=== PATIENT | female | born 1950 | race Native Hawaiian/Other Pacific Islander ===

== ENCOUNTER 2017-02-07 08:43 | Outpatient (CLI) | payer OTHER ==
[~2017-02-07 08:43] MED LIST: ALLERGY25 M1 PO; AMBIEN5 MG PO; AMITRIPTYLIN50 MG PO; ASA LOW STR81 MG PO; CIPRO500 MG PO; EZET10TA13 OR; GABA100C2 PO; GILOTRIF30 MG PO; KLOR-CON M2020 MEQ OR; LEVO0.0723 PO; LORTAB 10-325 M1 TAB PO; LORTAB1 TAB PO; NEXIUM40 M1 PO; NIFEDIAC CC90 MG OR; PAROXETINE10 MG OR; SIMV40TA57; STOOL SOFTENER240 MG PO; TIROSINT50 MCG OR; TOPROL XL200 MG PO; TRAM50TA PO
[2017-02-07 09:11] LABS: PLATELET COUNT 247 K/uL (152-353)
== END 2017-02-07 19:26 | disposition home or self-care (01) ==
LOC: LABW 08:43
PROVIDERS: Internal Medicine
DX: I10 Essential (primary) hypertension (principal)
CPT/HCPCS: 36415; 80053; 80061; 81000; 84439; 84443; 85027

== ENCOUNTER 2017-03-19 11:56 | Outpatient (CLI) | payer OTHER ==
[2017-03-19 12:15] LABS: PLATELET COUNT 199 K/uL (152-353)
== END 2017-03-19 19:16 | disposition home or self-care (01) ==
LOC: LABW 11:56
PROVIDERS: Internal Medicine
DX: D64.89 Other specified anemias (principal); E03.8 Other specified hypothyroidism
CPT/HCPCS: 36415; 80069; 84439; 84443; 85027

== ENCOUNTER 2017-08-18 07:56 | Outpatient (CLI) | payer OTHER ==
[2017-08-18 08:47] LABS: PLATELET COUNT 184 K/uL (152-353)
[2017-08-18 09:14] LABS: POTASSIUM 4.4 mmol/L (3.6-5.2)
== END 2017-08-18 10:00 | disposition home or self-care (01) ==
LOC: LABW 07:56 → US 09:00 → LABW 10:00
PROVIDERS: Internal Medicine
DX: I10 Essential (primary) hypertension (principal); M54.89 Other dorsalgia; Q61.01 Congenital single renal cyst
CPT/HCPCS: 36415; 80053; 80061; 81000; 82043; 82570; 84439; 84443; 85027

== ENCOUNTER 2017-12-05 09:19 | Outpatient (CLI) | payer OTHER ==
[2017-12-05 10:18] LABS: PLATELET COUNT 204 K/uL (152-353)
== END 2017-12-05 20:23 | disposition home or self-care (01) ==
LOC: LABW 09:19
PROVIDERS: Internal Medicine Nephrology
DX: N18.4 Chronic kidney disease, stage 4 (severe) (principal)
CPT/HCPCS: 36415; 82570; 82728; 83540; 83550; 83970; 84155; 84550; 85027

== ENCOUNTER 2018-02-10 09:09 | Outpatient (CLI) | payer OTHER ==
[2018-02-10 10:35] LABS: PLATELET COUNT 186 K/uL (152-353)
[2018-02-10 10:58] LABS: POTASSIUM 4.5 mmol/L (3.6-5.2)
== END 2018-02-10 22:48 | disposition home or self-care (01) ==
LOC: LABW 09:09
PROVIDERS: Internal Medicine Nephrology
DX: N18.4 Chronic kidney disease, stage 4 (severe) (principal)
CPT/HCPCS: 80069; 83540; 83970; 84550; 85027

== ENCOUNTER 2018-02-12 11:49 | Outpatient (CLI) | payer OTHER | END 2018-02-12 20:09 | disposition home or self-care (01) | LOC: LAB 11:49 | PROVIDERS: Internal Medicine | DX: I10 Essential (primary) hypertension (principal); E03.8 Other specified hypothyroidism | CPT/HCPCS: 80061; 81000; 84439; 84443 ==

== ENCOUNTER 2018-03-20 10:18 | Outpatient (CLI) | payer OTHER | END 2018-03-20 22:31 | disposition home or self-care (01) | LOC: US 10:18 | DX: R79.89 Other specified abnormal findings of blood chemistry (principal) | CPT/HCPCS: 36415; 85379 ==

== ENCOUNTER 2018-03-24 09:47 | Outpatient (CLI) | payer OTHER | END 2018-03-24 19:28 | disposition home or self-care (01) | LOC: NM 09:47 | DX: R79.89 Other specified abnormal findings of blood chemistry (principal) | CPT/HCPCS: A9540; A9567 ==

== ENCOUNTER 2018-04-14 08:52 | Outpatient (CLI) | payer OTHER ==
[2018-04-14 09:31] LABS: PLATELET COUNT 231 K/uL (152-353)
[2018-04-14 09:41] LABS: POTASSIUM 3.2 mmol/L (3.6-5.2)
== END 2018-04-14 19:58 | disposition home or self-care (01) ==
LOC: LABW 08:52
PROVIDERS: Internal Medicine Nephrology
DX: N18.4 Chronic kidney disease, stage 4 (severe) (principal); D64.9 Anemia, unspecified
CPT/HCPCS: 36415; 80069; 82570; 82728; 83540; 83550; 83970; 84155; 84165; 84166; 84550; 85027

== ENCOUNTER 2018-05-11 09:49 | Outpatient (CLI) | payer OTHER | END 2018-05-11 23:21 | disposition home or self-care (01) | LOC: RESP 09:49 | DX: R06.02 Shortness of breath (principal) | CPT/HCPCS: 94664 ==

== ENCOUNTER 2018-07-20 09:02 | Outpatient (CLI) | payer OTHER ==
[2018-07-20 09:51] LABS: PLATELET COUNT 209 K/uL (152-353)
[2018-07-20 10:17] LABS: POTASSIUM 4.4 mmol/L (3.6-5.2)
== END 2018-07-20 19:42 | disposition home or self-care (01) ==
LOC: LABW 09:02
PROVIDERS: Internal Medicine Nephrology
DX: N18.4 Chronic kidney disease, stage 4 (severe) (principal)
CPT/HCPCS: 36415; 80069; 82728; 83540; 83550; 83970; 84550; 85027

== ENCOUNTER 2018-08-03 08:20 | Outpatient (CLI) | payer OTHER ==
[2018-08-03 08:44] LABS: PLATELET COUNT 170 K/uL (152-353)
[2018-08-03 09:04] LABS: POTASSIUM 4.2 mmol/L (3.6-5.2)
== END 2018-08-03 20:28 | disposition home or self-care (01) ==
LOC: LABW 08:20
PROVIDERS: Internal Medicine Nephrology
DX: N18.5 Chronic kidney disease, stage 5 (principal); N25.81 Secondary hyperparathyroidism of renal origin; D64.9 Anemia, unspecified
CPT/HCPCS: 36415; 80053; 84100; 85027

== ENCOUNTER 2018-09-24 16:57 | Outpatient (CLI) | payer OTHER ==
[2018-09-24 17:37] LABS: PLATELET COUNT 175 K/uL (152-353)
[2018-09-24 17:47] LABS: POTASSIUM 4.4 mmol/L (3.6-5.2)
== END 2018-09-24 19:54 | disposition home or self-care (01) ==
LOC: LABW 16:57
PROVIDERS: Internal Medicine Nephrology
DX: I48.91 Unspecified atrial fibrillation (principal); N18.4 Chronic kidney disease, stage 4 (severe)
CPT/HCPCS: 36415; 80053; 82570; 84100; 84155; 85027

== ENCOUNTER 2018-10-26 08:47 | Outpatient (CLI) | payer OTHER ==
[2018-10-26 09:24] LABS: PLATELET COUNT 188 K/uL (152-353)
[2018-10-26 09:46] LABS: POTASSIUM 4.2 mmol/L (3.6-5.2)
== END 2018-10-26 19:57 | disposition home or self-care (01) ==
LOC: LABW 08:47
PROVIDERS: Internal Medicine Nephrology
DX: I10 Essential (primary) hypertension (principal); M18.4 Other bilateral secondary osteoarthritis of first carpometacarpal joints; J98.4 Other disorders of lung; E03.9 Hypothyroidism, unspecified; E78.5 Hyperlipidemia, unspecified; M10.9 Gout, unspecified
CPT/HCPCS: 36415; 80053; 80061; 81000; 83970; 84100; 84439; 84443; 84550; 85027

== ENCOUNTER 2019-05-27 07:38 | Outpatient (CLI) | payer OTHER ==
[2019-05-27 08:16] LABS: PLATELET COUNT 160 K/uL (152-353)
[2019-05-27 08:49] LABS: POTASSIUM 4.7 mmol/L (3.6-5.2)
== END 2019-05-27 19:43 | disposition home or self-care (01) ==
LOC: LABW 07:38
PROVIDERS: Internal Medicine
DX: I10 Essential (primary) hypertension (principal)
CPT/HCPCS: 36415; 80053; 80061; 84439; 84443; 85027

== ENCOUNTER → 2019-09-28 | Day surgery (SDC) | payer OTHER | LOC: OR 09-07 06:00 | PROC: 3E0T3BZ Introduction of Anesthetic Agent into Peripheral Nerves and Plexi, Percutaneous Approach (ICD-10-PCS; principal; 2019-09-28) | PROC: BQ18YZZ Fluoroscopy of Left Knee using Other Contrast (ICD-10-PCS; 2019-09-28) | DX: M25.562 Pain in left knee (principal); M17.12 Unilateral primary osteoarthritis, left knee | CPT/HCPCS: J2001 ==

== ENCOUNTER 2020-04-14 01:48 | Emergency (ER) | payer OTHER ==
[~2020-04-14] VITALS: Ht 152.4 cm; Wt 93.0 kg
[2020-04-14 01:50] VITALS: TEMP 98.9
[2020-04-14 02:30] LABS: PLATELET COUNT 160 K/uL (152-353)
[2020-04-14 02:44] LABS: POTASSIUM 4.5 mmol/L (3.6-5.2)
[2020-04-14 02:45] LABS: PARTIAL THROMBOPLASTIN TIME 23.2 SECONDS (24.5-33.6)
[2020-04-14 06:00] VITALS: BP 150/73
== END 2020-04-14 07:23 | disposition short-term general hospital (02) ==
LOC: ED 01:48
PROVIDERS: Hospitalist
DX: N18.6 End stage renal disease (principal); Z99.2 Dependence on renal dialysis; R07.89 Other chest pain; R79.89 Other specified abnormal findings of blood chemistry; I21.4 Non-ST elevation (NSTEMI) myocardial infarction
CPT/HCPCS: 36415; 80053; 82550; 83880; 84484; 85027; 85610; 85730; 93005; 96374; 99284; J0360